=== PATIENT | female | born 1960 | race Hispanic/Latino ===

== ENCOUNTER 2019-04-12 09:38 | Emergency (ER) | payer OTHER ==
[~2019-04-12] VITALS: Ht 147.3 cm; Wt 93.0 kg
--- OUTSIDE RECORDS SUMMARY | 2019-04-12 09:40 | XMS REPORT ---
Author Author [facility] Address Unknown Phone Unavailable Care Team Providers Care Fitter Tacker Name Role Phone Unavailable Unavailable Problems This patient has no known problems. Allergies, Adverse Reactions, Alerts This patient has no known allergies or adverse reactions. Medications This patient has no known medications. Encounters Start Date/Time End Date/Time Encounter Type Admission Type Attending Clinicians Care Facility Care Department Encounter ID 2017-02-28 00:00:00 2017-02-28 00:00:00 Outpatient [facility] [id number] 2017-02-17 07:40:59 2017-02-17 07:40:59 Outpatient [facility] [id number]
[2019-04-12] MEDS ORDERED: SODIUM CHLORIDE 0.9% 1000ML 1,000 ML IV STA (09:53)
[2019-04-12] MEDS ORDERED: FAMOTIDINE 20 MG/2 ML VIAL IV ONE ×2 (10:00→10:05)
[2019-04-12] MEDS ORDERED: KETOROLAC TROMETHAMINE 30 MG/ML VIAL IV ONE (10:00)
[2019-04-12] MEDS ORDERED: CLONIDINE HCL 0.2 MG TAB PO ONE (10:00)
[2019-04-12] MEDS ORDERED: SODIUM CHLORIDE 0.9% 1000ML 1,000 ML ONE (10:04)
[2019-04-12] MEDS ORDERED: KETOROLAC TROMETHAMINE 30 MG/ML VIAL ONE (10:05)
--- NOTE | 2019-04-12 11:48 | Diagnostic Imaging Report ---
CT of the abdomen and pelvis, without contrast, 04/12/2019. History: Abdominal pain. Comparison: None available. Technique: Multidetector CT scanning of the abdomen and pelvis was performed from the level of the lung bases to the inferior pubic rami without intravenous or oral contrast. Coronal and sagittal multiplanar reformations were obtained. RADIATION DOSE: Dose modulation, iterative reconstruction, and/or weight based adjustment of the mA/kV was utilized to reduce the radiation dose to as low as reasonably achievable. Discussion: Examination is limited without contrast. Lung bases: No visualized abnormalities. Abdomen: The liver is mildly enlarged measuring 17.5 cm in length. There is diffuse low-density of the liver. The gallbladder, biliary tree, spleen, pancreas, adrenal glands, and kidneys are unremarkable. The abdominal aorta is within normal limits. There is no bowel dilatation. The appendix is visualized and is normal. There is no evidence of adenopathy or free fluid. A small fat-containing umbilical hernia is present. Pelvis: The bladder, uterus, adnexa are unremarkable. There is no evidence of free fluid or adenopathy. Bones and soft tissues: Degenerative changes are present throughout the lumbar spine without evidence of lytic or sclerotic lesion. IMPRESSION: 1. Mild hepatomegaly with diffuse fatty infiltration of the liver. 2. Small fat-containing umbilical hernia. Otherwise unremarkable noncontrast exam. Signed by: Valente Fields on 04/12/2019 11:44 AM
== END 2019-04-12 10:16 | disposition home or self-care (01) ==
LOC: FSED 09:38
DX: R10.13 Epigastric pain (principal); K29.00 Acute gastritis without bleeding; I10 Essential (primary) hypertension; E11.9 Type 2 diabetes mellitus without complications
CPT/HCPCS: 74176; 80048; 80076; 81003; 85025; 99284; J1885; J7030